=== PATIENT | female | born 1960 | race American Indian/Alaskan Native ===

== ENCOUNTER 2019-01-29 12:31 | Emergency (ER) | payer MEDICARE ==
[2019-01-29 12:41] VITALS: BP 143/98
--- NOTE | 2019-01-29 12:44 | Event Note ---
ED Screening Note Date of service: 01/29/19 Time: 12:40 ED Screening Note: 58 y o female with PMH of COPD presents with coughing with cp from coughing states albuterol no relief This initial assessment/diagnostic orders/clinical plan/treatment(s) is/are subject to change based on patients health status, clinical progression and re- assessment by fellow clinical providers in the ED. Further treatment and workup at subsequent clinical providers discretion. Patient/guardian urged not to elope from the ED as their condition may be serious if not clinically assessed and managed. Initial orders include: cxr
--- NOTE | 2019-01-29 13:26 | XRay Report ---
CHEST 2 VIEWS INDICATION / CLINICAL INFORMATION: cough. COMPARISON: None available. FINDINGS: SUPPORT DEVICES: None. HEART / MEDIASTINUM: No significant abnormality. LUNGS / PLEURA: No significant pulmonary or pleural abnormality. No pneumothorax. ADDITIONAL FINDINGS: No significant additional findings. IMPRESSION: 1. No acute findings. Signer Name: Red Sampson MD Signed: 01/29/2019 1:21 PM Workstation Name: [id number]
--- NOTE | 2019-01-29 14:26 | Emergency Department Report ---
- General Chief Complaint: Upper Respiratory Infection Stated Complaint: COUGH/COLD SYM Source: patient Mode of arrival: Ambulatory Limitations: No Limitations - History of Present Illness MD Complaint: cough Severity: mild Severity scale (0 -10): 0 Improves With: other (inhaler) Associated Symptoms: cough. denies: fever, shortness of breath, nausea, vomiting, diarrhea, dysuria - Related Data Previous Rx's Medication Instructions Recorded Last Taken Type Amoxicillin [Amoxicillin TAB] 875 mg PO BID 10 Days #20 tablet 01/29/19 Unknown Rx Benzonatate [Tessalon Perles] 100 mg PO Q8HR #30 capsule 01/29/19 Unknown Rx guaiFENesin/CODEINE [Robitussin AC] 5 ml PO HS #60 ml 01/29/19 Unknown Rx Allergies Allergy/AdvReac Type Severity Reaction Status Date / Time acetaminophen Allergy Hives Verified 01/29/19 12:34 [From Darvocet-N] meperidine [From Demerol] Allergy Hives Verified 01/29/19 12:34 propoxyphene Allergy Hives Verified 01/29/19 12:34 [From Darvocet-N] ED Review of Systems ROS: Stated complaint: COUGH/COLD SYM Other details as noted in HPI Comment: All other systems reviewed and negative ED Past Medical Hx - Past Medical History Hx Hypertension: Yes - Surgical History Past Surgical History?: No - Social History Smoking Status: Current Every Day Smoker Substance Use Type: Alcohol - Medications Home Medications: Home Medications Medication Instructions Recorded Confirmed Last Taken Type Amoxicillin [Amoxicillin TAB] 875 mg PO BID 10 Days #20 tablet 01/29/19 Unknown Rx Benzonatate [Tessalon Perles] 100 mg PO Q8HR #30 capsule 01/29/19 Unknown Rx guaiFENesin/CODEINE [Robitussin AC] 5 ml PO HS #60 ml 01/29/19 Unknown Rx ED Physical Exam - General Limitations: No Limitations ED Course Vital Signs 01/29/19 12:39 Temperature 97.8 F Pulse Rate 112 H Respiratory 18 Rate Blood Pressure 143/98 O2 Sat by Pulse 100 Oximetry ED Medical Decision Making - Medical Decision Making This is a 58-year-old -[place] female with a known history of COPD. Last year she was referred to [facility] which she has not seen ye. She is a smoker. States she's down to 2 cigarettes per day. Over the last month she has coughing off and on. The cough is worse at night and has resulted her abdominal muscles and chest wall muscles hurting because of the cough. She started herself on prednisone 20 mg by mouth daily over the last 3 days. She does report some improvement but she continues to cough she also uses proventil and advair inhaler. She denies fever chills, shortness of breath. Critical care attestation.: If time is entered above; I have spent that time in minutes in the direct care of this critically ill patient, excluding procedure time. ED Disposition Clinical Impression: Bronchitis Disposition: - TO HOME OR SELFCARE Is pt being admited?: No Does the pt Need Aspirin: No Condition: Stable Instructions: Chronic Bronchitis (ED) Additional Instructions: Follow-up with YOUR primary care doctor in 2-3 days return to the emergency room for any worsening symptoms such as fever or shortness of breath or wheezing continue with by mouth prednisone 20 mg by mouth daily 2 more days. Continue with Proventil and Advair inhaler as previously prescribed. Rest hydrate and stop smoking Prescriptions: Amoxicillin [Amoxicillin TAB] 875 mg PO BID 10 Days #20 tablet guaiFENesin/CODEINE [Robitussin AC] 5 ml PO HS #60 ml Benzonatate [Tessalon Perles] 100 mg PO Q8HR #30 capsule Time of Disposition: 16:00
== END 2019-01-29 15:00 | disposition home or self-care (01) ==
LOC: ED 12:31
DX: J40 Bronchitis, not specified as acute or chronic (principal); Z88.6 Allergy status to analgesic agent; Z88.8 Allergy status to other drugs, medicaments and biological substances
CPT/HCPCS: 71046

== ENCOUNTER 2021-10-22 11:39 | Emergency (ER) | payer MEDICARE ==
[2021-10-22 13:09] LABS: Basophils # (Auto) 0.1 K/mm3 (0.0-0.1); Basophils % (Auto) 0.8 % (0.0-1.8); Eosinophils # (Auto) 0.1 K/mm3 (0.0-0.4); Eosinophils % (Auto) 1.2 % (0.0-4.3); Hematocrit 42.4 % (30.3-42.9); Mean Corpuscular HGB Conc 33 % (30-34); Mean Corpuscular Volume 92 fl (79-97); Monocytes # (Auto) 0.5 K/mm3 (0.0-0.8); Monocytes % (Auto) 6.1 % (0.0-7.3); Platelet Count 281 K/mm3 (140-440); Red Blood Count 4.62 M/mm3 (3.65-5.03); Red Cell Distribution Width 14.3 % (13.2-15.2)
[2021-10-22 13:11] LABS: Mucus,Urine FEW /HPF; WBC,Urine < 1.0 /HPF (0.0-6.0)
[2021-10-22 13:13] LABS: Color,Urine Colorless (Yellow)
[2021-10-22 13:14] LABS: Bilirubin,Urine Negative (Negative); Blood,Urine Negative (Negative); Protein,Urine <15 mg/dL mg/dL (Negative); Urobilinogen,Urine < 2.0 mg/dL (<2.0)
[2021-10-22 13:29] LABS: Alanine Aminotransferase 14 units/L (7-56); Albumin 4.8 g/dL (3.9-5); Blood Urea Nitrogen 10 mg/dL (7-17); Calcium 9.8 mg/dL (8.4-10.2); Hemolysis Index 6
[2021-10-22 14:06] LABS: BUN/Creatinine Ratio 14
[2021-10-22] MEDS ORDERED: KETOROLAC 30 MG/1 ML INJ IM ONE (15:41)
[2021-10-22] MEDS ORDERED: ONDANSETRON 4 MG ODT TAB PO ONE (15:41)
[2021-10-22] MEDS ORDERED: MORPHINE 4 MG/1 ML INJ IM ONE (15:41)
--- NOTE | 2021-10-22 15:41 | Emergency Department Report ---
ED General Adult HPI - General Chief complaint: Abdominal Pain Stated complaint: LEFT SIDE PAIN Time Seen by Provider: 10/22/21 15:09 Source: patient Mode of arrival: Ambulatory Limitations: No Limitations - History of Present Illness Initial comments: 61-year-old female with a history of history of hypertension, back pain, presents to the department with left flank pain. Patient reports symptoms began suddenly yesterday at her mother's house, when she noted she had trouble moving, walking, she denies fall or injury. Symptoms worsened with walking, moving, twisting bending. Patient denies prior injury, pain does not radiate to her abdomen to her groin or her legs, no weakness numbness tingling or paresthesias, no bladder or bowel dysfunction, no dysuria, no hematuria, no vomiting, no fever or chills. -: Sudden, hour(s) Location: left Radiation: non-radiation Severity scale (0 -10): 8 Quality: burning, stabbing, aching, sharp Consistency: constant Improves with: none Worsens with: movement Associated Symptoms: denies other symptoms - Related Data Previous Rx's Medication Instructions Recorded Last Taken Type Amoxicillin [Amoxicillin TAB] 875 mg PO BID 10 Days #20 tablet 01/29/19 Unknown Rx Benzonatate [Tessalon Perles] 100 mg PO Q8HR #30 capsule 01/29/19 Unknown Rx guaiFENesin/CODEINE [Robitussin AC] 5 ml PO HS #60 ml 01/29/19 Unknown Rx Cyclobenzaprine [Flexeril] 10 mg PO TID PRN #25 10/22/[address] [Reid Eric] 75 mg PO BID PRN #30 tablet 10/22/21 Unknown Rx Allergies Allergy/AdvReac Type Severity Reaction Status Date / Time acetaminophen Allergy Hives Verified 10/22/21 12:25 [From Darvocet-N] meperidine [From Demerol] Allergy Hives Verified 10/22/21 12:25 propoxyphene Allergy Hives Verified 10/22/21 12:25 [From Darvocet-N] ED Review of Systems ROS: Stated complaint: LEFT SIDE PAIN Other details as noted in HPI Constitutional: denies: chills ENT: as per HPI Respiratory: denies: cough Cardiovascular: denies: chest pain, palpitations Gastrointestinal: nausea. denies: abdominal pain, vomiting, diarrhea, constipation Genitourinary: denies: urgency, dysuria, frequency, hematuria Skin: denies: rash Neurological: denies: headache, weakness, numbness, paresthesias, abnormal gait ED Past Medical Hx - Past Medical History Hx Hypertension: Yes - Social History Smoking Status: Current Every Day Smoker Substance Use Type: Alcohol - Medications Home Medications: Home Medications Medication Instructions Recorded Confirmed Last Taken Type Amoxicillin [Amoxicillin TAB] 875 mg PO BID 10 Days #20 tablet 01/29/19 Unknown Rx Benzonatate [Tessalon Perles] 100 mg PO Q8HR #30 capsule 01/29/19 Unknown Rx guaiFENesin/CODEINE [Robitussin AC] 5 ml PO HS #60 ml 01/29/19 Unknown Rx Cyclobenzaprine [Flexeril] 10 mg PO TID PRN #25 10/22/[address] [Voltaren Dr] 75 mg PO BID PRN #30 tablet 10/22/21 Unknown Rx ED Physical Exam - General Limitations: No Limitations General appearance: alert, in no apparent distress - Head Head exam: Present: atraumatic - Eye Eye exam: Present: normal appearance, PERRL Pupils: Present: normal accommodation - ENT ENT exam: Present: normal exam, normal orophraynx - Neck Neck exam: Present: normal inspection. Absent: tenderness - Respiratory Respiratory exam: Present: normal lung sounds bilaterally - Cardiovascular Cardiovascular Exam: Present: regular rate, normal rhythm - GI/Abdominal GI/Abdominal exam: Present: soft. Absent: distended, tenderness - Extremities Exam Extremities exam: Present: normal inspection, full ROM, normal capillary refill. Absent: calf tenderness - Back Exam Back exam: Present: normal inspection, tenderness, CVA tenderness (L), muscle spasm, paraspinal tenderness, other (Sensation strength DTRs intact bilaterally. failed straight leg). Absent: full ROM, vertebral tenderness - Neurological Exam Neurological exam: Present: alert, oriented X3 - Psychiatric Psychiatric exam: Present: normal affect, normal mood - Skin Skin exam: Present: warm, dry, intact, normal color ED Course Vital Signs 10/22/21 12:23 Temperature 98 F Pulse Rate 88 Respiratory 20 Rate Blood Pressure 152/90 [Right] O2 Sat by Pulse 100 Oximetry ED Medical Decision Making - Lab Data Result diagrams: 10/22/21 12:47 10/22/21 12:47 - Medical Decision Making 61-year-old female with a history of history of hypertension, back pain, presents to the department with left flank pain. Patient reports symptoms began suddenly yesterday at her mother's house, when she noted she had trouble moving, walking, she denies fall or injury. Symptoms worsened with walking, moving, twisting bending. Patient denies prior injury, pain does not radiate to her abdomen to her groin or her legs, no weakness numbness tingling or paresthesias, no bladder or bowel dysfunction, no dysuria, no hematuria, no vomiting, no fever or chills. Ddiagnosis includes renal colic, kidney stones, UTI, pyelonephritis, renal sufficiency, sciatica, musculoskeletal pain, Patient reports history of pain in her right flank lumbar back from a fall years ago, never had this episode on the left area. Symptoms are less than 24 hours old, and appears to be elicited with activity movement twisting bending turning. Labs are all reassuring, no signs of any blood no signs of infection no leukocytosis no hematuria no nitrates. No nausea or vomiting symptoms can be followed up outpatient with primary care doctor. Have also instructed patient to monitor for worsening and return precautions, no indication for imaging at this time. Patient has some leftover tramadol and gabapentin from her old back pain, and I added some diclofenac topical management and encouraged her to follow-up with her doctor. Critical care attestation.: If time is entered above; I have spent that time in minutes in the direct care of this critically ill patient, excluding procedure time. ED Disposition Clinical Impression: Acute left flank pain Disposition: 01 HOME / SELF CARE / HOMELESS Is pt being admited?: No Does the pt Need Aspirin: No Condition: Stable Instructions: Abdominal Pain (ED), Flank Pain, Adult, [id number]
[2021-10-22 16:16] VITALS: BP 134/69
== END 2021-10-22 16:11 | disposition home or self-care (01) ==
LOC: ED 11:39
DX: R10.32 Left lower quadrant pain (principal); F17.200 Nicotine dependence, unspecified, uncomplicated; F10.20 Alcohol dependence, uncomplicated; Z88.8 Allergy status to other drugs, medicaments and biological substances
CPT/HCPCS: 36415; 80053; 81001; 83690; 85025; 96372; 99283; J1885; J2270; J3490; Q0162

== ENCOUNTER 2021-11-09 03:13 | Emergency (ER) | payer MEDICARE ==
--- NOTE | 2021-11-09 09:17 | Emergency Department Report ---
- General Chief Complaint: Upper Respiratory Infection Stated Complaint: TROUBLE BREATING/PAINLFT SIDE Time Seen by Provider: 11/09/21 09:14 Source: patient Mode of arrival: Ambulatory Limitations: No Limitations - History of Present Illness MD Complaint: cough, rhinorrhea -: Gradual - Related Data Previous Rx's Medication Instructions Recorded Last Taken Type Amoxicillin [Amoxicillin TAB] 875 mg PO BID 10 Days #20 tablet 01/29/19 Unknown Rx Benzonatate [Tessalon Perles] 100 mg PO Q8HR #30 capsule 01/29/19 Unknown Rx guaiFENesin/CODEINE [Robitussin AC] 5 ml PO HS #60 ml 01/29/19 Unknown Rx Cyclobenzaprine [Flexeril] 10 mg PO TID PRN #25 10/22/[address] [Reid Eric] 75 mg PO BID PRN #30 tablet 10/22/21 Unknown Rx Allergies Allergy/AdvReac Type Severity Reaction Status Date / Time acetaminophen Allergy Hives Verified 10/22/21 12:25 [From Darvocet-N] meperidine [From Demerol] Allergy Hives Verified 10/22/21 12:25 propoxyphene Allergy Hives Verified 10/22/21 12:25 [From Darvocet-N] ED Review of Systems ROS: Stated complaint: TROUBLE BREATING/PAINLFT SIDE Other details as noted in HPI ED Past Medical Hx - Past Medical History Hx Hypertension: Yes - Social History Smoking Status: Current Every Day Smoker Substance Use Type: Alcohol - Medications Home Medications: Home Medications Medication Instructions Recorded Confirmed Last Taken Type Amoxicillin [Amoxicillin TAB] 875 mg PO BID 10 Days #20 tablet 01/29/19 Unknown Rx Benzonatate [Tessalon Perles] 100 mg PO Q8HR #30 capsule 01/29/19 Unknown Rx guaiFENesin/CODEINE [Robitussin AC] 5 ml PO HS #60 ml 01/29/19 Unknown Rx Cyclobenzaprine [Flexeril] 10 mg PO TID PRN #25 10/22/[address] [Reid Eric] 75 mg PO BID PRN #30 tablet 10/22/21 Unknown Rx ED Physical Exam - General Limitations: No Limitations ED Course Vital Signs 11/09/21 03:15 Temperature 98.3 F Pulse Rate 117 H Respiratory 18 Rate Blood Pressure 155/100 O2 Sat by Pulse 97 Oximetry Critical care attestation.: If time is entered above; I have spent that time in minutes in the direct care of this critically ill patient, excluding procedure time. ED Disposition Condition: Stable
--- NOTE | 2021-11-09 10:07 | XRay Report ---
CHEST 2 VIEWS INDICATION / CLINICAL INFORMATION: cough. COMPARISON: 01/29/2019 FINDINGS: SUPPORT DEVICES: None. HEART / MEDIASTINUM: No significant abnormality. LUNGS / PLEURA: No significant pulmonary or pleural abnormality. No pneumothorax. ADDITIONAL FINDINGS: No significant additional findings. IMPRESSION: 1. No acute findings. Signer Name: Marito Sepulveda Jr, MD Signed: 11/09/2021 10:03 AM Workstation Name: [id number]
[2021-11-09] MEDS ORDERED: ALBUTEROL 2.5 MG/3 ML NEBU IH ONE (11:24)
[2021-11-09] MEDS ORDERED: methylPREDNISolone Sod Succinate 125 MG/2 ML INJ IM ONE (11:24)
[2021-11-09 13:36] VITALS: BP 144/87
== END 2021-11-09 13:37 | disposition home or self-care (01) ==
LOC: ED 03:13
DX: R06.02 Shortness of breath (principal); I10 Essential (primary) hypertension; F17.200 Nicotine dependence, unspecified, uncomplicated
CPT/HCPCS: 71046; 94640; 96372; 99283; J2930; 94644